=== PATIENT | male | born 1985 | race Caucasian/White ===

== ENCOUNTER 2018-06-24 17:19 | Emergency (ER) | payer OTHER ==
[2018-06-24] MEDS: HYDROCODONE/APAP (5/325) TAB PO (18:10)
== END 2018-06-24 20:13 | disposition home or self-care (01) ==
LOC: FTE 17:19
DX: S60.443A External constriction of left middle finger, initial encounter (principal); J45.901 Unspecified asthma with (acute) exacerbation; F17.210 Nicotine dependence, cigarettes, uncomplicated; W49.04XA Ring or other jewelry causing external constriction, initial encounter; Y92.9 Unspecified place or not applicable
CPT/HCPCS: 73130; 73130-LT; 99283-25